=== PATIENT | male | born 1960 | race Caucasian/White ===

== ENCOUNTER 2022-03-11 12:07 | Emergency (ER) | payer OTHER, SELFPAY ==
[2022-03-11 12:24] VITALS: BP 158/109; PULSE 93; RESP 18; TEMP 36.9; O2SAT 100; BMI 29.7
--- NOTE | 2022-03-11 13:11 | ED_ITS ---
HPI - Animal Bite General Chief Complaint: Animal Bite Stated Complaint: dog bite Time Seen by Provider: 03/11/22 13:11 Source: patient Mode of arrival: ambulatory History of Present Illness HPI narrative: 61-year-old male with history of epilepsy was working in his yd and got ?nipped by his neighbor's dog? who is fully vaccinated. Patient present to the emergency room because at the time the wound had continued to bleed. Patient reports that he is up-to-date on his tetanus shot. Related Data Allergies Allergy/AdvReac Type Severity Reaction Status Date / Time No Known Allergies Allergy Unverified 03/13/20 15:56 [No Known Allergies*] Review of Systems Review of Systems: Pertinent positives and negatives as stated in HPI 10 point review of systems otherwise negative. PMFSH Past Medical History Source: nursing notes reviewed Social History Social History Advance Directives: No Physical Exam ED Vital Signs: Vital Signs - 24 hr 03/11/22 12:24 Temperature 98.4 F Pulse Rate 93 Respiratory Rate 18 Blood Pressure 158/109 H Pulse Oximetry 100 Oxygen Delivery Method Room Air BMI result Body Mass Index 29.7 VITAL SIGNS: Reviewed. GENERAL: Well developed, well nourished, in no acute distress. HEAD: Normocephalic/atraumatic EYES: PERRLA, EOMI EARS: Ext canals without abnormality OROPHARYNX: no oral lesions noted, posterior pharynx clear LUNGS: Normal breath sounds. No adventitious sounds or accessory muscle use. SpO2<100> CARDIOVASCULAR: Regular rate and rhythm without noted murmurs ABDOMEN: Soft, non-tender, non-distended with bowel sounds. EXTREMITIES: No cyanosis, clubbing or edema; LEFT UPPER EXTREMITY: There is a small laceration to the palmar aspect of the forearm that is currently hemostatic.. SKIN: Inspection of the skin reveals no rashes NEUROLOGIC: Alert and oriented x 4. Strength and sensation to light touch were grossly intact x 4. Course Course Course Narrative: 61-year-old male with history and clinical presentation consistent with laceration from dog bite from a vaccinated animal. Patient is not currently on any immunosuppressive medications and otherwise will not be placed on antibiotics at this time nor will he receive a tetanus shot as he is up-to-date. He understands he will need to follow-up for suture removal and is otherwise discharged home in stable condition. Procedures Laceration Laceration 1: Site: upper extremity Side (If applicable): left Size (cm): 2 Description: stellate Depth: simple, single layer Local Anesthetic: lidocaine 1% Amount of anesthesia used (mL): 2 Pre-repair: wound explored, irrigated extensively and deep structures intact Skin layer closed with: nylon Size (cm): 4-0 Number of sutures: 4 Technique: simple, interrupted Discharge Plan Discharge Clinical Impression: Dog bite, Laceration of forearm, left Patient Disposition: Home, Self-Care Instructions: Animal Bite (ED), Laceration (ED), Care For Your Stitches (ED) Additional Instructions: 1. Resume all home medications as prescribed. 2. You may cleanse your wound with soap and water and blot dry with re- application of antibiotic ointment and application of gauze. 3. You should return to your primary care provider or to this emergency room for removal of your sutures in 7 days. 4. Follow-up with your primary care provider in the next 1-2 days. Return to the ER for any worsening symptoms.
== END 2022-03-11 13:49 | disposition home or self-care (01) ==
PROVIDERS: Emergency Provider Student in an Organized Health Care Education/Training Program
DX: S51.852A Open bite of left forearm, initial encounter (principal); S51.812A Laceration without foreign body of left forearm, initial encounter; W54.0XXA Bitten by dog, initial encounter; Y93.9 Activity, unspecified; Y92.9 Unspecified place or not applicable; Y99.9 Unspecified external cause status
CPT/HCPCS: 12001; 99282; 99284

== ENCOUNTER 2022-04-16 10:25 | Emergency (ER) | payer OTHER, SELFPAY ==
[2022-04-16 11:17] VITALS: BP 158/103; PULSE 79; RESP 18; O2SAT 98; BMI 29.3
--- NOTE | 2022-04-16 11:25 | ED_ITS ---
HPI - Wound/Laceration General Chief Complaint: Wound/Laceration Stated Complaint: finger lac. Time Seen by Provider: 04/16/22 11:17 Source: patient Mode of arrival: ambulatory History of Present Illness HPI narrative: 61-year-old male with a past medical history of hypertension presenting to the ED complaining of laceration to left 2nd digit s/p slicing with razor blade [employer]. Admits was carving a pumpkin and razor slipped. Denies taking anticoagulation. Denies injury to other area. Denies numbness, tingling, weakness. Tetanus up-to-date Onset (ago): hour(s) Related Data Previous Rx's Medication Instructions Recorded amoxicillin 875 mg-potassium 1 tab PO BID animal bite 10 days 03/12/22 clavulanate 125 mg tablet #20 tabs Allergies Allergy/AdvReac Type Severity Reaction Status Date / Time No Known Allergies Allergy Unverified 03/13/20 15:56 [No Known Allergies*] Review of Systems Review of Systems: Constitutional: No Fever, No Chills ENT/Mouth: No Ear Pain, No Nasal Congestion, No sore throat, No Rhinorrhea, No Swallowing Difficulty Cardiovascular: No Chest Pain, No SOB Respiratory: No Cough, No Sputum, No Wheezing Gastrointestinal: No Nausea, No Vomiting, No Diarrhea, No Constipation, No Abdominal pain Genitourinary: No Dysuria, No Urinary Frequency, No Hematuria Musculoskeletal: No joint pain, No Myalgias, No Joint Swelling Skin: + laceration, No rash Neuro: No Weakness, No Numbness, No Paresthesias Yes all other systems are reviewed and are negative Constitutional: Constitutional: Reports as per HPI Neurologic: Denies Sensory deficit (Neuro) [facility] Past Medical History Attestation statement: The following information was validated with the patient. Social History Social History Advance Directives: No Advance Directives Information Provided: Yes Physical Exam Vital Signs: Vital Signs: Last Vital Signs Temp 98.0 F 04/16/22 12:18 Pulse 74 04/16/22 14:26 Resp 18 04/16/22 14:26 BP 165/109 H 04/16/22 14:26 Pulse Ox 98 04/16/22 14:26 O2 Del Method 04/16/22 14:26 BMI result Body Mass Index 29.3 Const: General: cooperative, healthy appearing and no acute distress O rientation/consciousness: patient oriented x3 Limitations: no limitations HEENT: Head: Yes normal to inspection and Yes atraumatic Ears: hearing grossly normal bilaterally General nose exam: Normal external nose present Face and sinus: Yes normal facial exam Eyes: General: appearance normal, both eyes and all related structures EOM: EOMs intact bilaterally Neck: Neck: Yes normal visual inspection and Yes no meningeal signs Resp: Effort & Inspection: normal respiratory effort and no respiratory distress Cardio: Rate: regular rate Heart sounds: S1 normal heart sound present and S2 normal heart sound present Peripheral pulses: radial pulses present and ulnar radial pulses present Skin: Rashes: no rashes Neuro: General: patient oriented x3, tone normal, moves all extremities and no meningeal signs Motor exam (neuro): 5/5 motor strength present throughout Sensory Exam: No Sensory deficit (Neuro) Extrem: Other: 1 cm superficial laceration noted to distal left 1st digit palmar aspect. No nail involvement. Actively bleeding. Sensation intact to light touch, neurovascularly intact. Full range of motion intact Course Course Course Narrative: -patient's blood pressure very elevated in the emergency department, denies any symptoms including headache or chest pain, states is chronically elevated, takes 10 mg of amlodipine daily however does not take it daily is non compliant. > home dose of amlodipine given in the ED, will continue to monitor -1436--blood pressure still elevated to 165/109, patient wants to sign out against medical advice, still asymptomatic, discussed risks of stroke, heart attack and , patient is alert and oriented x3 able to make his own decisions, always welcome to return to the emergency department. Offered dose of HCTZ while in the ED however refused. MDM - Wound/Laceration MDM Narrative Medical decision making narrative: 61-year-old male with a past medical history of hypertension presenting to the ED complaining of laceration to left 2nd digit s/p slicing with razor blade [employer]. On exam hypertensive denies taking his BP medication this morning, NAD, physical exam as above with noted laceration to left index finger. Tetanus is up-to-date Will give home medication and repair wound Differential Diagnosis Differential diagnosis: Likely laceration Medical Records Attestation: I reviewed the patient's medical records. Lab Data Attestation: I reviewed the patient's lab results. Procedures Laceration Laceration 1: Site: hand Side (If applicable): left Size (cm): 1 Description: linear Depth: simple, single layer Local Anesthetic: lidocaine 1% (Digital block) Amount of anesthesia used (mL): 3 Skin layer closed with: nylon Size (cm): 5-0 Number of sutures: 3 Technique: simple, interrupted Discharge Plan Discharge Clinical Impression: Laceration of finger, HTN (hypertension) Patient Disposition: Left Against Medical Advice Instructions: Finger Laceration (ED) Additional Instructions: Your wounds were repaired today in the emergency department. Keep dry and clean. You need to return to any emergency department or urgent care in 7-10 days for suture removal Apply bacitracin and or Neosporin daily Once sutures are removed apply anti scar cream like Mederma If area begins look infected, is red, there is drainage, streaking, or you have fever please return to the emergency department Prescriptions: No Action amoxicillin-pot clavulanate 875-125 mg tablet 1 tab PO BID 10 Days Qty: 20 0RF Referrals: Anuradha Blair MD [Primary Care Provider] - 1 week (For suture removal) Stand Alone Forms: Against Medical Advice
[2022-04-16] MEDS: Lidocaine HCl 1 % MPF 5 ML VIAL 30 ML INFILTRATI (11:56)
[2022-04-16 12:18] VITALS: BP 176/111; PULSE 74; RESP 18; TEMP 36.7; O2SAT 97
[2022-04-16] MEDS: amLODIPine Besylate 10 MG TABLET PO (12:22)
[2022-04-16 12:47] VITALS: BP 183/109
[2022-04-16 13:41] VITALS: BP 167/108
[2022-04-16 14:26] VITALS: BP 165/109; PULSE 74; RESP 18; O2SAT 98
== END 2022-04-16 14:43 | disposition left against medical advice (07) ==
PROVIDERS: Emergency Provider Emergency Medicine; PCP Internal Medicine
DX: S61.211A Laceration without foreign body of left index finger without damage to nail, initial encounter (principal); W27.8XXA Contact with other nonpowered hand tool, initial encounter; I10 Essential (primary) hypertension; Y93.D9 Activity, other involving arts and handcrafts; Y92.019 Unspecified place in single-family (private) house as the place of occurrence of the external cause; Y99.9 Unspecified external cause status
CPT/HCPCS: 12001; 99283; 99284

== ENCOUNTER 2023-05-12 07:58 | Emergency (ER) | payer OTHER, SELFPAY ==
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
[2023-05-12 08:10] VITALS: BP 203/130; PULSE 92; RESP 15; O2SAT 95
[2023-05-12 08:18] VITALS: BP 203/130; PULSE 92; RESP 16; TEMP 36.6; O2SAT 99; BMI 31.7
--- NOTE | 2023-05-12 08:52 | PC.NURSE ---
this RN resumed care of pt at this time. pt currently in CT. will administer medication when pt returns.
[2023-05-12] MEDS: amLODIPine Besylate 10 MG TABLET PO (08:56)
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
[2023-05-12 09:20] VITALS: BP 178/110; PULSE 87; RESP 18; TEMP 36.6; O2SAT 95
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
[2023-05-12 10:43] VITALS: BP 173/96; PULSE 88; O2SAT 97
== END 2023-05-12 10:46 | disposition home or self-care (01) ==
PROVIDERS: Emergency Provider Emergency Medicine; PCP Physician Assistant Medical
DX: S20.219A Contusion of unspecified front wall of thorax, initial encounter (principal); S00.81XA Abrasion of other part of head, initial encounter; M54.2 Cervicalgia; R51.9 Headache, unspecified; V43.52XA Car driver injured in collision with other type car in traffic accident, initial encounter; Y93.9 Activity, unspecified; Y92.410 Unspecified street and highway as the place of occurrence of the external cause; Y99.9 Unspecified external cause status; Z79.899 Other long term (current) drug therapy
CPT/HCPCS: 70450; 71250; 72125; 99284